=== PATIENT | female | born 1990 | race Hispanic/Latino ===

== ENCOUNTER 2018-12-06 23:06 | Emergency (ER) | payer SELFPAY ==
[2018-12-07 00:15] LABS: BASO # 0.1 K/uL (0.0-0.2); EOS # 0.2 K/uL (0.0-0.7); EOS % 2.8 % (0.0-4.0); HEMOGLOBIN 13.5 g/dL (12.0-16.0); LYMPH # 3.8 K/uL (1.0-4.3); LYMPH % 46.7 % (20.0-40.0); MEAN CELL VOLUME 94.8 fl (81.0-99.0); MEAN CORPUSCULAR HEMOGLOBIN 31.6 pg (27.0-31.0); MEAN CORPUSCULAR HGB CONC 33.3 g/dL (33.0-37.0); MEAN PLATELET VOLUME 7.8 fl (7.2-11.7); MONO # 0.7 K/uL (0.0-0.8); NEUT # 3.4 K/uL (1.8-7.0); NEUT % 41.5 % (50.0-75.0); RBC 4.27 Mil/uL (3.80-5.20); RED CELL DISTRIBUTION WIDTH 12.8 % (11.5-14.5); WHITE BLOOD COUNT 8.2 K/uL (4.8-10.8)
[2018-12-07 00:21] LABS: SQUAMOUS EPITHIAL 3 /hpf (0-5); URINE BACTERIA RARE (<OCC); URINE BILIRUBIN NEGATIVE (NEGATIVE); URINE BLOOD MODERATE (NEGATIVE); URINE CLARITY SLIGHTY-CLOUDY (Clear); URINE COLOR YELLOW (YELLOW); URINE GLUCOSE (UA) NEG (NEGATIVE); URINE LEUKOCYTE ESTERASE NEG Leu/uL (Negative); URINE PROTEIN NEGATIVE (NEGATIVE); URINE UROBILINOGEN 0.2-1.0 mg/dL (0.2-1.0)
[2018-12-07 00:24] LABS: INR 0.9; PROTHROMBIN TIME 10.4 Seconds (9.8-13.1)
[2018-12-07 00:27] LABS: PARTIAL THROMBOPLASTIN TIME 29.7 Seconds (25.6-37.1)
[2018-12-07 00:28] LABS: ACETAMINOPHEN < 10.0 ug/ml (10.0-30.0); SALICYLATE < 1.0 mg/dl
[2018-12-07 00:37] LABS: ALT/SGPT 23 U/L (9-52); AST/SGOT 25 U/L (14-36); BARBITURATES, UR NEGATIVE (NEGATIVE); BENZODIAZEPINES, UR NEGATIVE (NEGATIVE); BLOOD UREA NITROGEN 14 mg/dl (7-17); CALCIUM 9.2 mg/dL (8.4-10.2); GFR NON-AFRICAN AMERICAN > 60; OPIATES, UR NEGATIVE (NEGATIVE); PHENCYCLIDINE, UR NEGATIVE (NEGATIVE)
[2018-12-07 00:47] LABS: ALB/GLOB RATIO 1.2 (1.0-2.1); ALBUMIN 4.1 g/dL (3.5-5.0)
[2018-12-07 01:58] VITALS: PULSE 74
--- NOTE | 2018-12-07 02:32 | ED PDOC ---
HPI: Psych/Substance Abuse Time Seen by Provider: 12/06/18 23:18 Chief Complaint (Nursing): Psychiatric Evaluation Chief Complaint (Provider): crisis eval History Per: Patient History/Exam Limitations: no limitations Additional Complaint(s): 28 y/o female brought in by EMS for crisis eval. Patient states she recently went through a break up so she stayed home from work today and when she stays home she gets "bored" and while talking to her mom she told her she took pills in an attempt to commit suicide. Patient denies suicidal ideation or attempt today; states she likes to say these things for attention. Patient denies suicidal/homicidal ideations, hallucinations, acute physical complaints. Patient states she is compliant with psych medications and goes to therapy as scheduled. Past Medical History Reviewed: Historical Data, Nursing Documentation, Vital Signs Vital Signs: Last Vital Signs Temp 98.8 F 12/07/18 01:35 Pulse 74 12/07/18 01:35 Resp 15 12/07/18 01:35 BP 121/72 12/07/18 01:35 Pulse Ox 100 12/07/18 01:35 - Medical History PMH: Anxiety, Bipolar Disorder, Depression - Surgical History Surgical History: No Surg Hx - Family History Family History: States: No Known Family Hx - Living Arrangements Living Arrangements: With Family - Allergies Allergies/Adverse Reactions: Allergies Allergy/AdvReac Type Severity Reaction Status Date / Time No Known Allergies Allergy Verified 12/06/18 23:16 Review of Systems ROS Statement: Except As Marked, All Systems Reviewed And Found Negative Psych: Positive for: Depression Physical Exam - Reviewed Nursing Documentation Reviewed: Yes Vital Signs Reviewed: Yes - Physical Exam Appears: Positive for: Well, Non-toxic, No Acute Distress Head Exam: Positive for: ATRAUMATIC, NORMAL INSPECTION, NORMOCEPHALIC Skin: Positive for: Normal Color Eye Exam: Positive for: Normal appearance ENT: Positive for: Normal ENT Inspection Cardiovascular/Chest: Positive for: Regular Rate, Rhythm Respiratory: Positive for: Normal Breath Sounds Gastrointestinal/Abdominal: Positive for: Normal Exam Back: Positive for: Normal Inspection Extremity: Positive for: Normal ROM Neurologic/Psych: Positive for: Alert, Oriented (x3) - Laboratory Results Result Diagrams: 12/07/18 00:05 12/07/18 00:05 Lab Results: PT 10.4 Seconds (9.8-13.1) 12/07/18 00:05 INR 0.9 12/07/18 00:05 APTT 29.7 Seconds (25.6-37.1) 12/07/18 00:05 Total Bilirubin 0.2 mg/dl (0.2-1.3) 12/07/18 00:05 AST 25 U/L (14-36) 12/07/18 00:05 ALT 23 U/L (9-52) 12/07/18 00:05 Alkaline Phosphatase 45 U/L (38-126) 12/07/18 00:05 Total Protein 7.5 G/DL (6.3-8.2) 12/07/18 00:05 Albumin 4.1 g/dL (3.5-5.0) 12/07/18 00:05 Globulin 3.3 gm/dL (2.2-3.9) 12/07/18 00:05 Albumin/Globulin Ratio 1.2 (1.0-2.1) 12/07/18 00:05 Urine Color Yellow (YELLOW) 12/07/18 00:05 Urine Clarity Slighty-cloudy (Clear) 12/07/18 00:05 Urine pH 5.0 (5.0-8.0) 12/07/18 00:05 Ur Specific [place] 1.019 (1.003-1.030) 12/07/18 00:05 Urine Protein Negative mg/dL (NEGATIVE) 12/07/18 00:05 Urine Glucose (UA) Neg mg/dL (NEGATIVE) 12/07/18 00:05 Urine Ketones Negative mg/dL (NEGATIVE) 12/07/18 00:05 Urine Blood Moderate (NEGATIVE) 12/07/18 00:05 Urine Nitrate Negative (NEGATIVE) 12/07/18 00:05 Urine Bilirubin Negative (NEGATIVE) 12/07/18 00:05 Urine Urobilinogen 0.2-1.0 mg/dL (0.2-1.0) 12/07/18 00:05 Ur Leukocyte Esterase Neg [place]/uL (Negative) 12/07/18 00:05 Urine RBC (Auto) 4 /hpf (0-3) H 12/07/18 00:05 Urine Microscopic WBC 1 /hpf (0-5) 12/07/18 00:05 Ur Squamous Epith Cells 3 /hpf (0-5) 12/07/18 00:05 Urine Bacteria Rare (<OCC) 12/07/18 00:05 - ECG ECG: Positive for: Viewed By Me (reviewed by ED attending) ECG Rhythm: Positive for: Sinus Rhythm O2 Sat by Pulse Oximetry: 100 - Progress ED Course And Treament: -cbc -cmp -alcohol -urine drug screen -urinalysis -ekg -1:1 -crisis eval Poison control contacted by RN; recommends obtaining labs and EKG and will call back when resulted Patient evaluated by workers compensation claims adjuster; does not meet criteria for admission at this time as per Dr. Jean Baptiste Patient requires no further intervention in the ED and is stable for discharge at this time Advised outpatient follow up Return precautions given Disposition - Clinical Impression Clinical Impression: Depression - Patient ED Disposition Is Patient to be Admitted: No Counseled Patient/Family Regarding: Studies Performed, Diagnosis, Need For Followup - Disposition Disposition: Routine/Home Disposition Time: 02:34 Condition: IMPROVED Instructions: Depression
[2018-12-07 02:49] VITALS: BP 119/78; RESP 16; TEMP 98; O2SAT 99
--- NOTE | 2018-12-07 12:11 | CARD ---
APPROVED REPORT Date of service: 12/06/2018 EKG Measurement Heart [id number] <Conclusion> Sinus rhythm with marked sinus arrhythmia Otherwise normal ECG
== END 2018-12-07 02:48 | disposition home or self-care (01) ==
LOC: H.ER 23:06
DX: F32.9 Major depressive disorder, single episode, unspecified (principal); Z86.59 Personal history of other mental and behavioral disorders
CPT/HCPCS: 80053; 81003; 85025; 85610; 85730; 93005; 99284; G0480